=== PATIENT | male | born 1990 | race Caucasian/White ===

== ENCOUNTER 2021-03-26 18:55 | Emergency (ER) | payer OTHER, SELFPAY ==
[2021-03-26 19:22] VITALS: BP 105/67; PULSE 58; RESP 18; TEMP 36.9; O2SAT 98; BMI 27.3
[2021-03-26 19:39] LABS: MANUAL DIFF FLAG NO
[2021-03-26 19:42] LABS: Basophils Percent Auto 0.5 % (0-2); Eosinophils Absolute Auto 0.1 X10*3/uL (0.0-0.4); Eosinophils Percent Auto 1.6 % (0-4); Hematocrit 38.7 % (42.0-52.0); Imm Gran Abs Auto 0.01 X10*3/uL (0.00-0.03); Imm Gran Pct Auto 0.2 % (0.0-0.4); Lymphocytes Absolute Auto 2.3 X10*3/uL (1.2-4.9); Lymphocytes Percent Auto 39.8 % (20-40); Mean Corpuscular HGB Conc 36.2 g/dl (31.0-36.0); Mean Corpuscular Volume 82.9 fL (80.0-98.0); Monocytes Absolute Auto 0.4 X10*3/uL (0.1-1.2); Monocytes Percent Auto 7.6 % (2-11); Neutrophils Absolute Auto 2.8 x10*3/uL (2.0-8.3); Neutrophils Percent Auto 50.3 % (45-73); Platelet Count 197 X10*3/uL (160-400); Red Blood Count 4.67 X10*6/uL (4.60-5.80); Red Cell Distribution Width 11.1 % (11.0-16.0); White Blood Count 5.7 X10*3/uL (4.8-10.8)
[2021-03-26 20:00] LABS: Alanine Aminotransferase 23 U/L (0-40); Albumin Level 4.6 g/dL (3.5-5.0); Alkaline Phosphatase 76 U/L (39-117); Anion Gap 11 (12-20); Aspartate Amino Transferase 19 U/L (5-37); Bilirubin Total 1.1 mg/dL (0.0-1.0); Blood Urea Nitrogen 11 mg/dL (9-16); Calcium 9.5 mg/dL (8.4-10.2); Carbon Dioxide 30 mmol/L (22-29); Chloride 104 mmol/L (96-108); Creatinine Clr Calc Pharmacy 106.7; Estimated Glomerular Filt Rate > 60; Glucose Random 75 mg/dL (60-115); Potassium 4.6 mmol/L (3.3-5.1); Sodium 140 mmol/L (135-145); Total Protein 7.7 g/dL (6.5-8.0)
[2021-03-26 20:01] LABS: COVID-19 Test Negative (Negative); IDNOW Serial# 55D5AD1C
--- NOTE | 2021-03-26 21:06 | ED_ITS ---
HPI - Headache General Chief Complaint: Headache Stated Complaint: left side head pain, eye pain, chest lump Time Seen by Provider: 03/26/21 20:59 Source: patient Mode of arrival: ambulatory Limitations: no limitations History of Present Illness HPI Narrative: Patient comes emergency room complaining of left-sided headache for 24 hours. Patient states that the only medication that he has taken is Percocet. Patient states that he is aware that he has addiction problem with Percocet, takes 8 tablets per day. Patient states that the pain eases off and in gets strong again. Patient states that this morning he noted that he has slight redness on his eye. Patient states he has no eye pain, no drainage. Patient denies any visual changes, no neurological deficits Related Data Previous Rx's Medication Instructions Recorded ibuprofen 600 mg tablet 600 mg PO Q6H PRN #14 tab 03/26/21 metoclopramide HCl 5 mg tablet 5 mg PO DAILY PRN #10 tab 03/26/21 (Reglan) Allergies Allergy/AdvReac Type Severity Reaction Status Date / Time No Known Allergies Allergy Verified 03/26/21 19:22 Review of Systems Review of Systems: Constitutional : No Weight loss, No Fever, No Chills, No Night Sweats, No Fatigue, No Malaise ENT/Mouth : No Hearing loss, No Ear Pain, No Nasal Congestion, No Sinus Pain, No Hoarseness, No sore throat, No Rhinorrhea, No Swallowing Difficulty Eyes: No Eye Pain, No Swelling, mild redness on the left eye on the lateral aspect, No Foreign Body, No Discharge, No Vision Changes Cardiovascular : No Chest Pain, No SOB, No Dyspnea on Exertion, No Orthopnea, No Edema, No Palpitations Respiratory : No Cough, No Sputum, No Wheezing, No Smoke Exposure, No Dyspnea Gastrointestinal : No Nausea, No Vomiting, No Diarrhea, No Constipation, No abdominal Pain, No Hematochezia, No Melena Genitourinary : no irregular bleeding, No Dysuria, No Urinary Frequency, No Hematuria, No Urinary Incontinence, No Urgency, No Flank Pain, No Urinary Flow Changes, No Hesitancy Musculoskeletal : No joint pain, No Myalgias, No Joint Swelling Skin : No Skin Lesions, No rash Neuro : No Weakness, No Numbness, No Paresthesias, No Loss of Consciousness, No Dizziness, complaining of left-sided Headache Psych : No Anxiety/Panic, No Depression, No SI/HI/AH/VH, No Social Issues, Heme/Lymph: No Bruising, No Bleeding,No Lymphadenopathy Endocrine : No Polyuria, No Polydipsia, No Temperature Intolerance [facility] Past Medical History Medical History (Updated 03/26/21 @ 21:09 by Zuleika Wen MD) Opiate addiction Social History Social History Advance Directives: No Advance Directives Information Provided: Yes Physical Exam Vital Signs: Vital Signs: Last Vital Signs Temp 98.5 F 03/26/21 19: Pulse 58 03/26/21 19: Resp 18 03/26/21 19: BP 105/67 03/26/21 19: Pulse Ox 98 03/26/21 19: BMI result Body Mass Index 27.3 Const: Other: Appearance: Alert. Oriented X3. No acute distress. Eyes: Pupils equal, round and reactive to light. Very mild redness to the lateral aspect of the left eye, rest of scleral within normal limits. No discharge ENT: Pharynx normal. Neck: Normal inspection. Neck supple. No lymph nodes noted. No crepitus CVS: Normal heart rate and rhythm. Pulses normal. Normal S1 and S2 Respiratory: No respiratory distress. Breath sounds normal. No Wheezing. No rales Abdomen: Soft and nontender. No rigidity. No distention. good BS x4 Skin: Skin warm and dry. Normal skin color. Normal skin turgor. Extremities: No lower extremity edema. No Lacerations. No Rash Neuro: Oriented X 3. No motor deficit. No sensory deficit. Moving all extermities. No slurred speech. Course Course Course Narrative: Patient will be Getting IV fluids IV diphenhydramine, ketorolac and Reglan. After the above-mentioned treatment, patient states that he has no longer headache, only feels a bit sleepy. MDM - Headache Lab Data Result diagrams: 03/26/21 19:33 03/26/21 19:33 Labs: Lab Results 03/26/21 03/26/21 03/26/21 Range/Units 19:33 19:33 19:33 WBC 5.7 (4.8-10.8) X10*3/uL RBC 4.67 (4.60-5.80) X10*6/uL Hgb 14.0 (14.0-18.0) g/dl Hct 38.7 L (42.0-52.0) % MCV 82.9 (80.0-98.0) fL MCH 30.0 (27.0-33.0) pg MCHC 36.2 H (31.0-36.0) g/dl RDW 11.1 (11.0-16.0) % Plt Count 197 (160-400) X10*3/uL MPV 11.0 (9.4-12.4) fL Immature Gran % (Auto) 0.2 (0.0-0.4) % Neut % (Auto) 50.3 (45-73) % Lymph % (Auto) 39.8 (20-40) % Russell % (Auto) 7.6 (2-11) % Eos % (Auto) 1.6 (0-4) % Baso % (Auto) 0.5 (0-2) % Lymph # (Auto) 2.3 (1.2-4.9) X10*3/uL Russell # (Auto) 0.4 (0.1-1.2) X10*3/uL Eos # (Auto) 0.1 (0.0-0.4) X10*3/uL Baso # (Auto) 0.0 (0.0-0.2) X10*3/uL Abs Immat Gran (auto) 0.01 (0.00-0.03) X10*3/uL Absolute Neuts (auto) 2.8 (2.0-8.3) x10*3/uL Absolute Nucleated RBC 0.000 (0.0-0.012) X10*3/uL Nucleated RBC % (auto) 0.0 (0.0-0.2) /100WBC Sodium 140 (135-145) mmol/L Potassium 4.6 (3.3-5.1) mmol/L Chloride 104 (96-108) mmol/L Carbon Dioxide 30 H (22-29) mmol/L Anion Gap 11 L (12-20) BUN 11 (9-16) mg/dL Creatinine 0.97 (0.5-1.4) mg/dL Estim Creat Clear Calc 106.7 Estimated GFR > 60 Random Glucose 75 (60-115) mg/dL Calcium 9.5 (8.4-10.2) mg/dL Total Bilirubin 1.1 H (0.0-1.0) mg/dL AST 19 (5-37) U/L ALT 23 (0-40) U/L Alkaline Phosphatase 76 (39-117) U/L Total Protein 7.7 (6.5-8.0) g/dL Albumin 4.6 (3.5-5.0) g/dL COVID-19 (CARLYN) Negative (Negative) COVID-19 Clin Com See Note Discharge Plan Discharge Clinical Impression: Headache Patient Disposition: Home, Self-Care Instructions: Acute Headache (DC) Additional Instructions: Please follow-up with your primary care physician tomorrow. If you have any worsening or new symptoms, please return to the emergency room or call 911 Prescriptions: New ibuprofen 600 mg tablet 600 mg PO Q6H PRN (Reason: pain) Qty: 14 0RF metoclopramide HCl [Reglan] 5 mg tablet 5 mg PO DAILY PRN (Reason: nausea and vomiting) Qty: 10 0RF
[2021-03-26] MEDS: 0.9 % Sodium Chloride 1,000 ML 999 ML IVCONT (21:52)
[2021-03-26] MEDS: diphenhydrAMINE HCL 50 MG/ML VIAL 25 MG IVPUSH (21:53)
[2021-03-26] MEDS: Metoclopramide HCl 10 MG/2 ML VIAL IVPUSH (21:53)
[2021-03-26] MEDS: Ketorolac Tromethamine 30 MG/ML VIAL IVPUSH (21:53)
== END 2021-03-26 22:52 | disposition home or self-care (01) ==
LOC: HO.ED 21:10
PROVIDERS: Emergency Provider Emergency Medicine; PCP Internal Medicine
DX: R51.9 Headache, unspecified (principal); Z20.822 Contact with and (suspected) exposure to COVID-19; Z79.899 Other long term (current) drug therapy
CPT/HCPCS: 80053; 85025; 87635; 96361; 96374; 96375; 99284; J1200; J1885; J2765

== ENCOUNTER 2022-05-20 09:13 | Outpatient (REF) | payer OTHER, SELFPAY ==
[2022-05-20 10:44] LABS: Hematocrit 43.2 % (42.0-52.0); Hemoglobin 15.2 g/dl (14.0-18.0); Mean Corpuscular HGB Conc 35.2 g/dl (31.0-36.0); Mean Corpuscular Hemoglobin 29.6 pg (27.0-33.0); Mean Corpuscular Volume 84.2 fL (80.0-98.0); Mean Platelet Volume 11.3 fL (9.4-12.4); Platelet Count 228 X10*3/uL (160-400); Red Blood Count 5.13 X10*6/uL (4.60-5.80); Red Cell Distribution Width 11.6 % (11.0-16.0); White Blood Count 6.9 X10*3/uL (4.8-10.8)
[2022-05-20 11:19] LABS: Appearance Urine Cloudy; Color Urine Yellow; Glucose Urine UA Negative (Negative); Leukocyte Esterase Urine Negative (Negative); Nitrite Urine Negative (Negative); Specific Gravity - Urine >= 1.030 (1.005-1.025); Urine Blood Negative (Negative); Urine Ketones Negative (Negative); Urine Protein Trace mg/dL (Neg-Trace)
[2022-05-20 11:28] LABS: Erythrocyte Sedimentation Rate 10 MM/HR (0-15)
[2022-05-20 11:36] LABS: Alanine Aminotransferase 42 U/L (0-40); Albumin Level 4.4 g/dL (3.5-5.0); Alkaline Phosphatase 94 U/L (39-117); Anion Gap 14 (12-20); Aspartate Amino Transferase 22 U/L (5-37); Bilirubin Direct 0.2 mg/dL (0.0-0.5); Bilirubin Total 1.2 mg/dL (0.0-1.0); Blood Urea Nitrogen 11 mg/dL (9-16); Calcium 9.5 mg/dL (8.4-10.2); Carbon Dioxide 26 mmol/L (22-29); Chloride 106 mmol/L (96-108); Cholesterol 142 mg/dL; Estimated Glomerular Filt Rate > 60; Glucose Random 92 mg/dL (60-115); HDL Cholesterol 22 mg/dL; Potassium 4.5 mmol/L (3.3-5.1); Sodium 141 mmol/L (135-145); Total Protein 7.4 g/dL (6.5-8.0); Triglycerides 409 mg/dL
[2022-05-20 11:40] LABS: Thyroid Stimulating Hormone 0.86 uIU/mL (0.32-4.0)
== END 2022-05-20 09:14 | disposition home or self-care (01) ==
LOC: HO.LAB 09:13
PROVIDERS: PCP Internal Medicine; Visit Provider Internal Medicine
DX: Z00.00 Encounter for general adult medical examination without abnormal findings (principal)
CPT/HCPCS: 36415; 80048; 80061; 80076; 81003; 84443; 85027; 85652

== ENCOUNTER 2022-12-03 12:48 | Emergency (ER) | payer OTHER, SELFPAY | END 2022-12-03 14:53 | disposition left against medical advice (07) | PROVIDERS: Emergency Provider Emergency Medicine | DX: R69 Illness, unspecified (principal) ==

== ENCOUNTER 2022-12-03 15:59 | Outpatient (AMB) | payer OTHER, SELFPAY ==
[2022-12-03 15:59] VITALS: BP 118/66; PULSE 60; O2SAT 98; BMI 28.1
--- NOTE | 2022-12-03 15:59 | A.OFFPC_ITS ---
Vital Signs 12/03/22 15:59 Height 5 ft 8 in Weight 185 lb 0.8 oz BMI 28.1 BP 118/66 Blood Pressure Location Lt brachial Position Sitting Pulse 60 Pulse Source Pulse Oximeter Pulse Oximetry (%) 98 Oxygen Delivery Method Room Air Intake Visit Reasons: 6M Follow up, per Dr. 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 Marques HPI Details Patient is a 32-year-old male presents today requesting referral for counseling due to anxiety. Patient of Dr. Champion. Medical history significant for opiate addiction-patient reports being clean now. He also reports ongoing neck and mid back pains for long time now, pain usually constant, worse with activity. Reports he started with mid back pain after jumping couple years ago. Reports taking Motrin with minimal improvement in pain. Reports chronic intermittent numbness to his right hand. No changes in bowel/bladder. Reports using Biofreeze with some improvement as well. Patient is a [place]orese-speaking and ANASTASIIA Hall was helping with interpretation. [facility] Medical History Opiate addiction Surgical History History of surgery of head Family History Other Mental health disorder Social History Housing: Apartment Alcohol intake: never Patient Tobacco Use Status: Never used Tobacco e-Cigarette/Vaping Use: Never Used Second Hand Smoke Exposure: No service: No Current occupational status: employed Cognitive needs: No Hearing needs: No Vision needs: No Questionnaire PHQ-9 Over the last 2 weeks, how often have you been bothered by any of the following problems? 1. Little interest or pleasure in doing things: not at all 2. Feeling down, depressed, or hopeless: not at all 3. Trouble falling or staying asleep, or sleeping too much: not at all 4. Feeling tired or having little energy: not at all 5. Poor appetite or overeating: not at all 6. Feeling bad about yourself - or that you are a failure or have let yourself or your family down: not at all 7. Trouble concentrating on things, such as reading the newspaper or watching television: not at all 8. Moving or speaking so slowly that other people could have noticed. Or the opposite - being so fidgety or restless that you have been moving around a lot more than usual: not at all 9. Thoughts that you would be better off or of hurting yourself in some way: not at all Total score: 0 Depression Screening Interpretation: Negative Depression Screening Done: Yes 07890 - PHQ-9 Billing: Yes Source: Developed by Drs. John Means, Kel Ramos and colleagues, with an educational ihsan from [employer]. Thrive Questionnaire Date Thrive assessed: 05/15/22 AUDIT C Alcohol Use Questionnaire (AUDIT-C) 1. How often do you have a drink containing alcohol?: Never 3. How often do you have six or more drinks on one occasion?: Never Total Score: 0 Score Reviewed/Action Taken: No IQRA-7 AMB Questionnaire IQRA-7 Date IQRA - 7 assessed: 12/03/22 Feeling nervous, anxious, or on edge: 0 = Not at all Not being able to stop or control worryin = Not at all Worrying too much about different things: 0 = Not at all Trouble relaxin = Not at all Being so restless that it is hard to sit still: 0 = Not at all Becoming easily annoyed or irritable: 0 = Not at all Feeling afraid as if something awful might happen: 0 = Not at all Total IQRA-7 score (0-4 normal; 5-9 mild; 10-14 moderate; 15-21 severe): 0 Source: Developed by Drs. John Means, Kel Ramos and colleagues, with an educational ihsan from [employer]. IQRA-7 Assessment Billing IQRA-7 Assessment Tool: IQRA-7 Assessment 82337 Review of Systems Const Denies body aches, Denies chills, Denies fever(s) and Denies headache(s) Eyes Denies change in vision ENT Denies dizziness, Denies otalgia, Denies headache(s), Denies nasal discharge, Denies sinus pain and Denies sore throat Card Denies chest pain, Denies edema, Denies lightheadedness and Denies dyspnea Resp Denies cough, Denies dyspnea and Denies wheezing GI Denies abdominal pain, Denies constipation, Denies diarrhea, Denies nausea and Denies vomiting Denies dysuria Musc Reports as per HPI, Reports back pain and Denies myalgias Skin/Breast Denies rash Neuro Denies dizziness and Denies headache(s) Aller/Immun Denies wheezing Physical exam (Primary Care) Vital Signs: Last Vital Signs Pulse 60 12/03/22 15:59 BP 118/66 12/03/22 15:59 Pulse Ox 98 12/03/22 15:59 Oxygen Delivery Method Room Air 12/03/22 15:59 BMI result Body Mass Index 28.1 Tobacco/Smoking Status: Tobacco use Status Tobacco use date assessed 12/03/22 12/03/22 16:00 Patient Tobacco Use Status Never used Tobacco 12/03/22 16:00 e-Cigarette/Vaping Use Never Used 12/03/22 16:00 PHQ-9: PHQ-9 Score PHQ-9: Total score 0 12/03/22 16:05 Depression Screening Interpretation: Negative Thrive Assessment: Date of Thrive Assessment Date Thrive assessed 05/15/22 12/03/22 16:00 Const General: cooperative and no acute distress Orientation/consciousness: patient oriented x3 HENMT Head: Yes normocephalic and Yes atraumatic Face and sinus: Yes sinuses nontender Mouth: oropharynx normal and moist mucous membranes Throat: Yes posterior oropharynx normal Eyes General: appearance normal, both eyes and all related structures Neck Neck: Yes normal visual inspection, Yes full ROM and Yes no lymphadenopathy Resp Effort & Inspection: normal respiratory effort and able to speak in complete sentences Auscultation: clear to auscultation bilaterally, no crackles, no rales, no rhonchi and no wheezes Cardio Rate: regular rate Rhythm: regular rhythm Heart sounds: S1 normal heart sound present, S2 normal heart sound present and no murmurs GI Auscultation: normal bowel sounds General: No CVA tenderness Back/Spine/Pelvis Back: No CVA tenderness Cervical Spine: cervical ROM normal, cervical muscular tenderness and Cervical spine tenderness Thoracic/Lumbar Spine: thoraco-lumbar ROM normal, No paraspinal muscle tenderness, thoracic spinal tenderness and No lumbar spinal tenderness Skin General skin exam: no rashes or lesions noted Neuro General: patient oriented x3 Gait exam (Neuro): Normal gait present Extrem General: Yes full ROM and No edema Assessment and Plan Assessment & Plan (1) Back pain: Code(s): M54.9 - Dorsalgia, unspecified Plan: Suspect musculoskeletal Will obtain thoracic spine x-ray Physical therapy referral Start tizanidine 2 mg at bedtime p.r.n. - educated about drowsiness Start naproxen b.i.d. p.r.n. Continue heat/cold packs p.r.n. follow-up if no improvement after physical therapy (2) Neck pain: Code(s): M54.2 - Cervicalgia Plan: Same as above (3) Anxiety: Code(s): F41.9 - Anxiety disorder, unspecified Plan: Counseling referral Start hydroxyzine 10 mg at bedtime p.r.n.-educated about drowsiness Orders: Orders PT Evaluation and Treatment Today M54.2 - Cervicalgia, M54.9 - Dorsalgia, unspecified XR thoracic spine 3V Today M54.9 - Dorsalgia, unspecified Referrals Counseling Referral F41.9 - Anxiety disorder, unspecified Medications: New hydroxyzine HCl 10 mg PO BEDTIME PRN 14 tabs 0RF anxiety F41.9 - Anxiety disorder, unspecified naproxen 375 mg PO BID PRN 30 tabs 0RF pain M54.2 - Cervicalgia tizanidine 2 mg PO BEDTIME PRN 14 tabs 0RF muscle spasticity M54.2 - Cervicalgia, M54.9 - Dorsalgia, unspecified Coding Level of Care Code Est Pt Level 4 (68317) Diagnoses Back pain M54.9 Neck pain M54.2 Anxiety F41.9 Additional Codes IQRA-7 Assessment Billing - IQRA-7 Assessment Tool: IQRA-7 Assessment 21791 ([id number])
== END 2022-12-03 16:34 | disposition home or self-care (01) ==
PROVIDERS: PCP Internal Medicine; Visit Provider Nurse Practitioner Family
DX: M54.9 Dorsalgia, unspecified (principal); M54.2 Cervicalgia; F41.9 Anxiety disorder, unspecified
CPT/HCPCS: 99214

== ENCOUNTER 2023-10-15 20:02 | Emergency (ER) | payer OTHER, SELFPAY ==
--- NOTE | ~2023-10-15 | XR_ITS ---
EXAMINATION: Right foot 3 views right ankle 2 views CLINICAL INFORMATION: Pain status post athletic injury. COMPARISON: None. TECHNIQUE: As above nonweightbearing. FINDINGS: There are no fractures or dislocations. No joint effusion is identified. No bone, joint or soft tissue abnormality is demonstrated. XR/XR foot RT min 3V IMPRESSION: No fracture or focal bony lesion. Electronically signed by: Colten Lazcano MD 10/15/2023 09:58 PM EDT RP
--- NOTE | ~2023-10-15 | XR_ITS ---
EXAMINATION: Right foot 3 views right ankle 2 views CLINICAL INFORMATION: Pain status post athletic injury. COMPARISON: None. TECHNIQUE: As above nonweightbearing. FINDINGS: There are no fractures or dislocations. No joint effusion is identified. No bone, joint or soft tissue abnormality is demonstrated. XR/XR ankle RT min 3V IMPRESSION: No fracture or focal bony lesion. Electronically signed by: Colten Lazcano MD 10/15/2023 09:58 PM EDT RP
--- NOTE | 2023-10-15 20:49 | ED.LOWEXIN ---
HPI - Extremity Injury (Lower) General Chief Complaint: Extremity Injury, Lower Stated Complaint: right ankle inj Time Seen by Provider: 10/16/23 02:47 History of Present Illness ED Provider: Addison IVERSON Narrative: The patient is a 32-year-old male who says that he injured his right foot or ankle 2 days ago playing basketball. Despite the injury he went to work yesterday. He has a spent a lot of time on his feet at work. He found it very painful. He came to the emergency room for evaluation because of the pain. He says that he sustained the injury when he came down very hard on the foot. Related Data Previous Rx's ?Medication ?Instructions ?Recorded hydroxyzine HCl 10 mg tablet 10 mg PO BEDTIME PRN anxiety #14 12/03/22 tabs tizanidine 2 mg tablet 2 mg PO BEDTIME PRN muscle 12/03/22 spasticity #14 tabs naproxen 375 mg tablet 375 mg PO BID PRN pain #30 tabs 01/21/23 Allergies Allergy/AdvReac Type Severity Reaction Status Date / Time No Known Allergies Allergy Verified 10/15/23 20:51 Review of Systems Review of Systems: Yes all other systems are reviewed and are negative [facility] Past Medical History Medical History Opiate addiction Surgical History History of surgery of head Family History Family History Other Mental health disorder Social History Social History Housing: Apartment Alcohol intake: never Patient Tobacco Use Status: Never used Tobacco e-Cigarette/Vaping Use: Never Used Second Hand Smoke Exposure: No Advance Directives: No Advance Directives Information Provided: No Do you have a plan to hurt others: No Plan service: No Current occupational status: employed Cognitive needs: No Hearing needs: No Vision needs: No Physical Exam Vital Signs: Vital Signs: Last Vital Signs Temp 98.2 F 10/16/23 03:10 Pulse 66 10/16/23 03:10 Resp 16 10/16/23 03:10 BP 120/78 10/16/23 03:10 Pulse Ox 98 10/16/23 03:10 O2 Del Method Room Air 10/16/23 03:10 BMI result Body Mass Index 27.4 Const: Other: The patient has the appearance of a not nearly healthy 32-year-old. He does not appear in acute distress. HEENT: Head: Yes normal to inspection Face and sinus: Yes normal facial exam Eyes: General: appearance normal, both eyes and all related structures Resp: Effort & Inspection: normal respiratory effort Skin: Other: There is some mild soft tissue swelling of the dorsum of the right foot in the midfoot region and just under the lateral malleolus. The skin is intact. Neuro: Other: The patient is awake and alert with normal mental status. The right foot is neurovascularly intact. Normal sensation. Normal motor function of the toes. Extrem: Other: The patient has some soft tissue swelling to the skin of the dorsum of the foot laterally in the region of the mid foot and just under the lateral malleolus. He seems less tender on the malleoli themselves. No gross deformity. Course Course Course Narrative: This is a Rapid Medical Examination (RME) performed by Marv Matias PA-C in triage. Full HPI, ROS, assessment and treatment plan per primary provider in the Main ED. 32-year-old male presents to the ER for evaluation of right lateral ankle pain and foot pain after he twisted his ankle playing basketball yesterday. He reports limping gait since then and pain with weight-bearing. Mild swelling with no ecchymosis. Pain is 10/10. Plan: X-ray of the ankle and foot Medical Decision Making Medical Decision Making MDM Narrative: X-rays of the right foot and ankle were ordered at triage. These are both negative for fracture. I think the patient's primary injury is more to the foot just below the ankle. He will be treated with crutches and a postop shoe. He is advised to keep the foot elevated and stay off the foot as much as possible for the next few days. He was given work note. He should follow up with his PCP. Discharge Plan Discharge Clinical Impression: Right foot sprain Patient Disposition: Home, Self-Care Additional Instructions: The x-rays of your ankle in your foot did not show any broken bones. I believe you have sustained a sprain to your foot. The most important thing for a sprained foot is to rest it. This means you should stay off the foot as much as possible. As much as you can you should elevate the foot and use ice several times a day. Use crutches for the next few days and do not put any weight on the foot. My hope is that by Thursday you will be doing better and can return to work. Please plan on following up with your regular doctor. Return to the emergency room if worse. Prescriptions: No Action naproxen 375 mg tablet 375 mg PO BID PRN (Reason: pain) Qty: 30 0RF tizanidine 2 mg tablet 2 mg PO BEDTIME PRN (Reason: muscle spasticity) Qty: 14 0RF hydroxyzine HCl 10 mg tablet 10 mg PO BEDTIME PRN (Reason: anxiety) Qty: 14 0RF Referrals: Sandra Wynne MD [Primary Care Provider] - (foot sprain) Stand Alone Forms: Work/School Release Interventions: ED Discharge Assessment Last Done: 10/16/23 03:10 Discharge Date/Time: 10/16/23 03:20 Print Language: Senegalese
[2023-10-15 20:50] VITALS: BP 132/91; PULSE 60; RESP 16; TEMP 37; O2SAT 99; BMI 27.4
[2023-10-16 03:10] VITALS: BP 120/78; PULSE 66; RESP 16; TEMP 36.8; O2SAT 98
== END 2023-10-16 03:20 | disposition home or self-care (01) ==
PROVIDERS: Emergency Provider Emergency Medicine; PCP Internal Medicine
DX: S93.601A Unspecified sprain of right foot, initial encounter (principal); X50.1XXA Overexertion from prolonged static or awkward postures, initial encounter; Y93.67 Activity, basketball; Y92.310 Basketball court as the place of occurrence of the external cause; Y99.9 Unspecified external cause status
CPT/HCPCS: 73610; 73630; 99283